=== PATIENT | male | born 1945 ===

== ENCOUNTER 2021-10-10 15:31 | Inpatient (IN) ==
[2021-10-10] MEDS ORDERED: Enoxaparin 100 MG/ML SYR SUBCUT SCH (18:30)
[2021-10-10] MEDS: Multivitamins/Minerals TAB PO SCH (18:34)
[2021-10-10] MEDS: Enoxaparin 100 MG/ML SYR SUBCUT SCH (18:34)
[2021-10-11] MEDS: Enoxaparin 100 MG/ML SYR SUBCUT SCH (05:39)
[2021-10-11 05:54] LABS: ABS Eosinophils 0.1 10^3/ul (0-0.6); ABS Lymphocytes 1.2 10^3/ul (1.0-4.8); ABS Monocytes 0.5 10^3/ul (0-0.8); ABS Neutrophils 3.2 10^3/ul (1.5-7.7); Eosinophil % 2.7 %; Hematocrit 42 % (42-52); Lymphocyte % 23.6 %; Mean Corpuscular HGB Conc 33 g/dL (31-36); Mean Corpuscular Hemoglobin 33 pg (27-31); Mean Corpuscular Volume 99 fL (80-94); Mean Platelet Volume 8.9 fL (7.4-10.4); Nucleated Red Blood Cells % 0.1; Platelet Count 175 10^3/uL (150-450); Red Blood Count 4.26 10^6 /uL (4.18-5.48); Red Cell Distribution Width 13 % (10-15); White Blood Count 5.1 10^3/uL (3.5-10.8)
[2021-10-11 06:04] LABS: Albumin 3.4 g/dL (3.2-5.2); Albumin/Globulin Ratio 1.7 (1-3); Calcium 8.8 mg/dL (8.6-10.3); Magnesium 1.9 mg/dL (1.9-2.7); Potassium 3.8 mmol/L (3.5-5.0); Total Bilirubin 0.9 mg/dL (0.2-1.0); Total Protein 5.4 g/dL (6.4-8.9); eGFR CKD-EPI 88.3 (>60)
[2021-10-11] MEDS ORDERED: Aspirin EC 81 mg TAB.EC (enteric coated) PO SCH (09:00)
[2021-10-11 09:26] LABS: TSH Ultra Thyroid Stim Horm 2.89 mcIU/mL (0.34-5.60)
[2021-10-11 09:28] LABS: Free T4 1.15 ng/dL (0.61-1.12)
[2021-10-11 09:48] LABS: Free T3 3.2 pg/mL (2.5-3.9)
[2021-10-11] MEDS: Multivitamins/Minerals TAB PO SCH (09:54)
[2021-10-11] MEDS ORDERED: Ketamine HCL 50 mg/ml 10 ml VIAL (500 MG) ONE (12:20)
[2021-10-11] MEDS ORDERED: Propofol 10 MG/ML 20 ML BTL ONE (12:50)
[2021-10-11] MEDS ORDERED: Lidocaine 1% MPF 2 ML VIAL ONE (12:50)
[2021-10-11] MEDS ORDERED: Midazolam 5 mg/5 ml VIAL 1 mg/ml 5 ml VIAL (5 mg) ONE (13:04)
[2021-10-11] MEDS: Amiodarone 400 mg TAB PO SCH ×2 (15:08→20:48)
[2021-10-12 07:13] LABS: Calcium 8.5 mg/dL (8.6-10.3); Magnesium 1.9 mg/dL (1.9-2.7); eGFR CKD-EPI 89.6 (>60)
[2021-10-12] MEDS: Amiodarone 400 mg TAB PO SCH ×2 (08:07→21:05)
[2021-10-12] MEDS: Multivitamins/Minerals TAB PO SCH (08:07)
[2021-10-13] MEDS: Multivitamins/Minerals TAB PO SCH (09:45)
[2021-10-13] MEDS: Amiodarone 400 mg TAB PO SCH (09:45)
[2021-10-13 11:45] VITALS: BP 124/73
== END 2021-10-13 12:30 | disposition home or self-care (01) | DRG 201 ==
LOC: SUATTDRO 16:35 → MEDTELE 16:35
PROVIDERS: ADMIT Hospitalist; ATTEND Internal Medicine
PROC: O.CATEE (2021-10-11 12:15)